=== PATIENT | female | born 1980 | race Caucasian/White ===

== ENCOUNTER → 2018-10-29 | Outpatient (CLI) | payer OTHER ==
[~2018-10-29] MED LIST: NORCO 5-325 TA1 EACH PO
[2018-10-29 11:08] LABS: CREATININE 0.8 mg/dL (0.6-1.3)
== END ==
LOC: M.LAB 10:39 → M.CT 13:00
PROVIDERS: Internal Medicine
DX: Z12.31 Encounter for screening mammogram for malignant neoplasm of breast (principal); R63.4 Abnormal weight loss; R59.9 Enlarged lymph nodes, unspecified; G43.909 Migraine, unspecified, not intractable, without status migrainosus; E78.5 Hyperlipidemia, unspecified; F17.200 Nicotine dependence, unspecified, uncomplicated; F41.9 Anxiety disorder, unspecified

== ENCOUNTER → 2018-11-02 | Outpatient (CLI) | payer OTHER | LOC: M.ULTRA 08:15 | DX: N60.01 Solitary cyst of right breast (principal) ==

== ENCOUNTER → 2018-12-01 | Outpatient (CLI) | payer OTHER ==
[2018-12-01] VITALS (13 sets, daily range): BP systolic 99–117; BP diastolic 56–78
[~2018-12-01] VITALS: Ht 165.1 cm; Wt 62.6 kg
[2018-12-01 08:45] LABS: HEMATOCRIT 31.1 % (37.0-47.0); MCH 24.1 pg (26.0-34.0); MCHC 32.3 g/dL (28.0-37.0); MCV 74.8 fL (80.0-100.0); MPV 7.6 fl. (7.2-11.1); NUCLEATED RBCS 0 /100WBC; PLATELET COUNT* 490 thou/uL (150-400); RBC 4.16 mil/uL (4.20-5.00); RDW-CV 17.9 % (10.5-14.5)
[2018-12-01 08:53] LABS: CALCIUM 8.9 mg/dL (8.5-10.1); CREATININE 0.7 mg/dL (0.6-1.3); POTASSIUM 4.1 mmol/L (3.5-5.1)
[2018-12-01 08:56] LABS: APTT 31.7 Seconds (25.0-31.3); PROTIME 10.3 Seconds (9.20-11.50)
[2018-12-01 08:58] LABS: ALBUMIN 2.7 g/dL (3.4-5.0); TOTAL BILIRUBIN 0.1 mg/dL (<0.1-1.0); TOTAL PROTEIN 7.9 g/dL (6.4-8.2)
[2018-12-01 09:22] LABS: ABSOLUTE BASOPHILS 0.1 thou/uL (0.0-0.2); ABSOLUTE EOSINOPHILS 0.1 thou/uL (0.0-0.7); ABSOLUTE LYMPHOCYTES 1.8 thou/uL (0.8-5.3); ABSOLUTE MONOCYTES 0.4 thou/uL (0.0-1.2); ABSOLUTE NEUTROPHILS 10.5 thou/uL (1.6-8.1); ATYPICAL LYMPHS 3 %
[2018-12-01 09:23] LABS: ANISOCYTOSIS 1+; PLATELET ESTIMATE ADEQUATE
--- NOTE | 2018-12-01 14:36 | 2DMMODE ---
[place] [address] 2 D/M-MODE ECHOCARDIOGRAM Name: RACHANA ACOSTA Room: [facility]#: [id number] Admission: 12/01/18 Attend Phys: Tal Vance Discharge: Date of : 76 Date of Service: 12/01/18 1435 Report #: [id number] THIS REPORT FOR: //name// APPROVED REPORT Study performed: 12/01/2018 12:41:47 EXAM: Comprehensive 2D, Doppler, and color-flow Echocardiogram Patient Location: Out-Patient BSA: 1.69 HR: 74 bpm BP: 99/54 mmHg Other Information Study Quality: Good 2D Dimensions IVSd: 6.04 (7-11mm) LVOT Diam: 20.29 (18-24mm) LVDd: 50.52 mm PWd: 7.95 (7-11mm) Ascending Ao: 25.30 (22-36mm) LVDs: 35.84 (25-40mm) Aortic Root: 25.61 mm Volumes Left Atrial Volume (Systole) LA ESV Index: 12.40 mL/m2 Aortic Valve AoV Peak Kristian.: 1.21 m/s AO Peak Gr.: 5.86 mmHg LVOT Max P.72 mmHg AO Mean Gr.: 3.33 mmHg LVOT Mean P.74 mmHg LVOT Max V: 0.96 m/s AO V2 VTI: 22.98 cm LVOT Mean V: 0.60 m/s LESA (VTI): 2.58 cm2 LVOT V1 VTI: 18.38 cm Mitral Valve E/A Ratio: 1.65 MV Decel. Time: 176.12 ms MV E Max Kristian.: 1.01 m/s MV PHT: 51.07 ms MVA (PHT): 4.31 cm2 TDI E/Lateral E': 5.61 E/Medial E': 6.73 [place] [address] 2 D/M-MODE ECHOCARDIOGRAM Name: DAVERACHANA Room: [facility] UPMCMieshaMiesha#: [id number] Admission: 12/01/18 Attend Phys: Tal Vance Discharge: Date of : 76 Date of Service: 12/01/18 1435 Report #: [id number] Medial E' Kristian.: 0.15 m/s Lateral E' Kristian.: 0.18 m/s Pulmonary Valve PV Peak Kristian.: 0.94 m/s PV Peak Gr.: 3.50 mmHg Left Ventricle The left ventricle is normal size. There is normal LV segmental wall motion. There is normal left ventricular wall thickness. Left ventricular systolic function is normal. LVEF is 55-60%. The left ventricular diastolic function is normal. Right Ventricle The right ventricle is normal size. The right ventricular systolic function is normal. Atria The left atrium size is normal. The right atrium size is normal. Aortic Valve The aortic valve is normal in structure. No aortic regurgitation is present. There is no aortic valvular stenosis. Mitral Valve The mitral valve is normal in structure. Mild mitral regurgitation. No evidence of mitral valve stenosis. Tricuspid Valve The tricuspid valve is normal in structure. There is no tricuspid valve regurgitation noted. Pulmonic Valve The pulmonary valve is normal in structure. Trace to mild pulmonic regurgitation. Great Vessels The aortic root is normal in size. IVC is normal in size and collapses >50% with inspiration. Pericardium There is no pericardial effusion. <Conclusion> The left ventricle is normal size. There is normal [place] [address] 2 D/M-MODE ECHOCARDIOGRAM Name: DAVERACHANA Room: [facility]#: [id number] Admission: 12/01/18 Attend Phys: Tal Vance Discharge: Date of : 76 Date of Service: 12/01/18 1435 Report #: [id number] Left ventricular systolic function is normal. LVEF is 55-60%. The left ventricular diastolic function is normal. There is normal LV segmental wall motion. Mild mitral regurgitation. Trace to mild pulmonic regurgitation. IVC is normal in size and collapses >50% with inspiration. <ELECTRONICALLY SIGNED> By: Mohit Chino MD, FACC 12/01/18 1435 143 143 Mohit Chino MD, FACC /INF
--- NOTE | 2018-12-03 08:28 | PF ---
[address] [address] PULMONARY FUNCTION REPORT Name: DAVERACHANA LOVE LUCHO Room: [facility].#: [id number] Admission: 12/01/18 Attend Phys: Joo Fox MD Discharge: Date of : 76 Report #: [id number] THIS REPORT FOR: //name// CC: Joo Lopes [facility] DATE OF SERVICE: 12/01/2018 A 38-year-old female with mild cough and shortness of air. Spirometry demonstrates very mild obstructive defect. Minimal decrease in mid flow rates are noted. Best results show an FEV1 of 3.1 and FVC of 4.1 liters with a ratio of 75%. FEV1 is 99% of predicted. FAV17-99 mildly decreased at 58% of predicted with minimal bronchodilator response. Lung volumes were upper limits of normal with TLC being 118% of predicted, 5 plethysmography, and RV is 118% of predicted. Diffusion is mildly diminished at 68% when corrected for alveolar volume. No adverse reactions from the above PFTs. Abnormalities suggest very mild obstructive airways disease with some mild small airways disease. No significant bronchodilator response. <ELECTRONICALLY SIGNED> By: Warren Cervantes MD 12/03/18 0828 1051 1225Antbertin Cervantes MD /ye
--- NOTE | 2018-12-03 15:07 | PATH ---
[address] [address] PATHOLOGY RPT PROCEDURE Name: DAVEMARGIE LOVE LUCHO [facility] [id number] Admission: 12/01/18 Date of : 76 Discharge: Report #: [id number] Path Case #: [id number] [facility] Accession Number: [id number] . 01 Material submitted: . PART A: bone - BONE MARROW BIOPSY PART B: bone - BONE MARROW CLOT PART C: bone - BONE MARROW ASPIRATE SLIDES PART D: bone - PERIPHERAL BLOOD SMEARS PART E: bone - BONE MARROW FLOW . 01 Clinician provided ICD-10: C81.41 . 01 Clinical history: . 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 This is a staging marrow. . 02 Diagnosis: Bone marrow aspirate, biopsy, cell clot and peripheral blood: - Peripheral blood with mild leukocytosis/neutrophilia, mild to moderate microcytic anemia and mild thrombocytosis. - Normocellular bone marrow with trilineage hematopoiesis, no significant dyspoiesis and no evidence of lymphoma or acute leukemia. - Inadequate bone marrow core biopsy. - See comment. LBQ/12/03/2018 . 02 Comment: Overall, the bone marrow is normocellular for the patient's age with trilieage hematopoiesis, no significant dyspoiesis and no evidence of the patient's previously diagnosed lymphocyte rich classic Hodgkin lymphoma ([id number]) or acute leukemia. However, the bone marrow core biopsy is inadequate. Correlation with clinical history, additional laboratory data and cytogenetics is recommended. (CLW/db; 12/03/2018) . 02 Electronically signed: . Linda Mcbride MD, Pathologist NPI- [id number] . 01 Gross description: . A. Received in formalin labeled "Margie Frazier, core," is a single needle core of possible sosa bone measuring 0.3 cm in length and 0.2 cm in diameter. The specimen is submitted entirely in cassette A1, following decalcification. . B. Received in formalin labeled "Margie Frazier, [place] [address] PATHOLOGY RPT PROCEDURE Name: MARGIE FRAZIER Room: [facility] Sang#: [id number] Admission: 12/01/18 Date of : 76 Discharge: Report #: [id number] Path Case #: [id number] clot," is an aggregate of dark sosa blood clot measuring 6.3 x 1.5 x 1.6 cm. The specimen is filtered and entirely submitted in cassette B1-B11, with the first pass in B1 through B7 and the second pass in B8 through B11. (TSD; 12/01/2018) TOB/TOB . 02 Microscopic: . CBC Data (12/01/18): WBC 13,000 /uL, RBC 4.16, hemoglobin 10.0 g/dL, hematocrit 31.1%, MCV 74.8 fL, MCH 24.1 pg, MCHC 32.2 g/dL, RDW 17.9%, and platelet count 490,000 per uL. White blood cell differential: segs 81%, lymphs 11%, monos 3%, eos 1%, basos 1% and atypical lymphs 3%. . Peripheral Blood Smear: Cytomorphological examination of the John's stained peripheral blood smear confirms the provided data. Red blood cells show mild to moderate microcytic anemia with mild anisocytosis. No significant poikilocytosis is identified. White blood cells are predominantly segmented neutrophils and are without significant dyspoiesis or significant left shift. Lymphocytes are predominantly small, round, and mature appearing with condensed chromatin and scant cytoplasm with admixed large granular lymphocytes. On scanning, no markedly atypical lymphoid cells are seen. Monocytes are mature. Platelets are adequate (mildly increased) in number and mainly normal in morphology with rare larger platelets noted. . Aspirate Smears: Cytomorphological examination of the John's stained aspirate smear shows spicules present. The overall cellularity is approximately 60% cellular. The myeloid to erythroid ratio is 2:1. Full myeloid maturation is identified and is without significant dyspoiesis. Erythroid maturation is mildly dyserythropoietic with irregular nuclear contours and nuclear cytoplasmic dyssynchrony. In a 500 cell differential, there are 1% blasts (no Jovon rods are seen), 57% more differentiated myeloids, 28% erythroid precursors, 13% lymphocytes and 1% plasma cells. Megakaryocytes are proportional in number and both normal and abnormal in morphology with variable sizes and nuclear abnormalities. No lymphoid aggregates or markedly atypical lymphoid cells are seen. Plasma cells are without atypia. Iron stain of the aspirate smear shows 0-1/4+ iron positivity with spicules present. No ringed sideroblasts are identified. . Core Biopsy and Cell Clot: The decalcified bone marrow core biopsy is inadequate. It is a small fragment of blood and peripheral blood elements with a very small spicule present. The myeloid to erythroid ratio, myeloid maturation and erythroid maturation cannot be accurately evaluated. Megakaryocytes are not present. No lymphoid aggregates or markedly atypical lymphoid cells are seen. Bony trabeculae and blood vessels are not identified. The cell clot has spicules present. The cellularity is approximately 60%. The myeloid to erythroid ratio is 2 to 1. [place]el[place] [address] PATHOLOGY RPT PROCEDURE Name: MARGIE FRAZIER Room: [facility]#: [id number] Admission: 12/01/18 Date of : 76 Discharge: Report #: [id number] Path Case #: [id number] are without significant dyspoiesis. A mild eosinophilia is noted. Megakaryocytes are normal in number and both normal and abnormal in morphology. No lymphoid aggregates or markedly atypical lymphoid cells are seen. . Properly controlled special stains are performed. . Block A1 Iron - 0/4+ iron positivity Reticulin - No significant reticulin fibrosis . Block B1 Iron - 2/4+ iron positivity . . Flow cytometry: . Special studies report received from [facility], [address] [place] [address], [address], [place], [address], on case [id number], labeled with their number [id number], dated 12/03/2018. . Flow Cytometry: Hematologic Neoplasia Assessment . Clinical History Evaluation for lymphoma . Indication for Study Evaluation for lymphoma . Specimen Bone Marrow . Viability 95% (7AAD exclusion) . Interpretation Bone Marrow: - No immunophenotypic evidence of abnormal myeloid maturation or an increased blast population. - No immunophenotypic evidence of a B-cell or a T-cell lymphoproliferative disorder. . Comments There are no significant immunophenotypic abnormalities in this analysis. It is of note that myeloproliferative and myelodysplastic disorders cannot be totally excluded based solely on flow cytometry analysis. Correlation with available clinical, laboratory, and morphologic data is recommended. [place] [address] PATHOLOGY RPT PROCEDURE Name: MARGIE FRAZIER Room: [facility]#: [id number] Admission: 12/01/18 Date of : 76 Discharge: Report #: [id number] Path Case #: [id number] Myeloid Blasts:0.4% No significant immunophenotypic abnormalities . Lymphocytes: 9% B-cells: 1.6%, polytypic/polyclonal sIg light chain pattern T-cells: no significant abnormalities of the markers tested CD4+ T-cells: 4.7% (including 0.1% CD57+ cells) CD8+ T-cells: 1.9% (including 0.3% CD57+ cells) CD4:CD8: 2.4 NK cells: 0.8% . Neutrophilic Cells: 83% No significant abnormalities of the markers tested . Monocytic Cells: 4% No significant abnormalities of the markers tested . Eosinophils: 2% No relative increase . Basophils: 0.4% No relative increase . Plasma Cells: 0.2% Few detected; no overt abnormalities of the surface markers tested (plasma cells are typically underrepresented by flow cytometry; cytoplasmic light chains were not assessed) . Hematogones: 0.1% Normal B-cell precursors . Morphologic Evaluation A slide was reviewed for quality assurance coach purposes only. . Specimen Description Cell Yield: 16.06x10 6 . Pertinent Prior Test Results Received Date: 11/10/2018 Test Type: Flow Cytometry Specimen Type: Tissue Result: Result Number: [id number] Tissue, Left Neck: - No significant lymphoid immunophenotypic abnormalities detected (see comment). . Reagent(s) Used CD2, CD3, CD4, CD5, CD7, CD8, CD10, CD11b, CD13, CD14, CD16, CD19, CD20, CD33, CD34, CD38, CD45, CD56, CD57, CD64, CD117, HLA-DR, kappa, lambda . at [facility] [address] PATHOLOGY RPT PROCEDURE Name: MARGIE FRAZIER [facility] [id number] Admission: 12/01/18 Date of : 76 Discharge: Report #: [id number] Path Case #: [id number] Pathologist . . Intended Use Flow cytometry is optimally used to immunophenotypically characterize abnormal populations when they are detected. Negative flow cytometry results do not exclude lymphoma or neoplasia. Possible false negative flow cytometry results may occur in, but are not limited to, the following: neoplastic cells in Hodgkin lymphoma are not typically adequately represented by routine clinical flow cytometry; neoplastic cells may be lost or inadequately represented due to degeneration, sample processing, sampling artifact, or patchy involvement; plasma cells are typically underrepresented by flow cytometry; immature cells/blasts may be underrepresented due to hemodilution; myeloproliferative disorders and low grade myelodysplasia may not have immunophenotypic abnormalities or increased blasts. Correlation with all available clinical, laboratory, and morphologic data is always necessary to assess for the possibility of false negative flow cytometry results and to establish a diagnosis. Each marker in this analysis was used to assess for potential antigenic abnormalities or to evaluate detected abnormalities. . Disclaimer(s) This test was performed at [facility]. at [address], [address] - Sensor Specialist: Neel Jeronimo MD. . [facility] is a business unit of [employer] a wholly-owned subsidiary of [employer]. . Any image or images that accompany this report are automobile sales representative images only and should not be used to render a diagnosis. . This test was developed and its performance characteristics determined by [facility]. It has not been cleared or approved by the Food and Drug Administration (FDA). The FDA has determined that such clearance or approval is not necessary. . For inquiries, the physician may contact Lab: [phone] . A complete copy of the report is on file. . Professional services performed by [facility]. at [address] [facility] [address], [place] [address]. Technical services performed by [facility]. at [address], [place] [address]. . (AWILDA: 12/03/2018) [place] [address] PATHOLOGY RPT PROCEDURE Name: MARGIE FRAZIER Room: [facility]#: [id number] Admission: 12/01/18 Date of : 76 Discharge: Report #: [id number] Path Case #: [id number] Cytogenetics: Cytogenetic chromosomal analysis is pending at [facility] ([id number]). (CLW/db; 12/03/18) . . . 02 Pathologist provided ICD-10: D72.829, D64.9, D47.3, C81.41 . 02 CPT . 595330, 802869, 945673, 830313, 445732, 938779, 748227, 870068, 076508 Specimen Comment: A courtesy copy of this report has been sent to Specimen Comment: [phone], , . Specimen Comment: Report sent to ,DR INIGUEZ / DR OSORIO Performed at: 01 [facility] [address] [place] [address] [id number] MD Kristian Shanks MD Phone: [phone] Performed at: 02 [place] [id number] [address] [id number] MD Orlando Daily MD Phone: [phone]
== END | disposition home or self-care (01) ==
LOC: M.INT 07:44 → M.PUL 12:30 → M.CRD 13:00
PROVIDERS: Radiology Diagnostic Radiology
DX: Z45.2 Encounter for adjustment and management of vascular access device (principal); I34.0 Nonrheumatic mitral (valve) insufficiency; C81.48 Lymphocyte-rich Hodgkin lymphoma, lymph nodes of multiple sites; D72.829 Elevated white blood cell count, unspecified; D64.9 Anemia, unspecified; D47.3 Essential (hemorrhagic) thrombocythemia; F17.210 Nicotine dependence, cigarettes, uncomplicated; Z90.49 Acquired absence of other specified parts of digestive tract; Z87.442 Personal history of urinary calculi; Z98.890 Other specified postprocedural states; Z79.899 Other long term (current) drug therapy; Z88.8 Allergy status to other drugs, medicaments and biological substances

== ENCOUNTER → 2020-03-02 | Outpatient (CLI) | payer OTHER | LOC: M.RAD 10:45 | PROVIDERS: ATTEND Registered Nurse Diabetes Educator | DX: Z12.31 Encounter for screening mammogram for malignant neoplasm of breast (principal) ==

== ENCOUNTER → 2020-12-11 | Outpatient (CLI) | payer OTHER | LOC: M.RAD 11:44 | PROVIDERS: ATTEND Registered Nurse Diabetes Educator | DX: M41.86 Other forms of scoliosis, lumbar region (principal) ==